=== PATIENT | male | born 1980 | race Caucasian/White ===

== ENCOUNTER 2019-11-16 10:43 | Emergency (ER) | payer OTHER, SELFPAY ==
--- NOTE | ~2019-11-16 | XR_ITS ---
EXAMINATION: XR finger 5th RT min 2V EXAM DATE: 11/16/2019 11:30 INDICATION: Initial encounter following injury, with pain of the right 5th finger. TECHNIQUE: Right 5th finger frontal, lateral and oblique projections obtained and reviewed. There is no prior study for comparison. FINDINGS: Acute open posttraumatic comminuted fracture of the right 5th tuft, with distraction of th e fracture fragments, deep overlying laceration and soft tissue swelling. No radiopaque foreign howard s identified. The middle and proximal phalanges are unremarkable. There may be an old healed 5th meta carpal fracture. IMPRESSION: Acute open right 5th tuft comminuted fractures. Reviewed, dictated and finalized at location B.
--- NOTE | 2019-11-16 10:49 | ED.GENADULT ---
HPI - General Adult General Chief complaint: Skin/Abscess/Foreign Body Stated complaint: rt hand pinkie laceration Time Seen by Provider: 11/16/19 10:48 Source: patient Mode of arrival: ambulatory Limitations: no limitations History of Present Illness HPI narrative: 38-year-old male patient presents to the [facility] with complaints of a laceration to the right pinky. Patient states that he got mad earlier today and slammed a door but states that his pinky was in the door. Patient unsure when his last tetanus shot was. Patient denies take anything for pain prior to arrival. Related Data Home Medications Medication Instructions Recorded Confirmed citalopram 20 mg PO DAILY 11/16/19 11/16/19 Allergies Allergy/AdvReac Type Severity Reaction Status Date / Time No Known Allergies Allergy Unknown Verified 11/16/19 10:50 Review of Systems Review of Systems: Narrative: CONSTITUTIONAL: Denies fever, chills, or sweats. EYES: Denies visual changes, redness, or discharge. ENT: Denies rhinorrhea, congestion, sore throat, or otalgia. CARDIOVASCULAR: Denies chest pain, palpitations, or edema. RESPIRATORY: Denies cough or dyspnea. GASTROINTESTINAL: Denies abdominal pain, nausea, vomiting, or diarrhea. GENITOURINARY: Denies dysuria or hematuria. SKIN: Denies rash or itching. MUSCULOSKELETAL: Denies back pain, joint pain, or myalgia. Positive right pinky wound/laceration NEUROLOGIC: Denies headache, numbness, or weakness. PSYCHIATRIC: Denies anxiety or depression. PMFSH Past Medical History Medical History (Updated 11/16/19 @ 12:16 by MIGUELINA Mitchell) Depression Fractures And Ulcer Family History Family History Father Family history of malignant neoplasm Social History Social History Smoking status: Never smoker Alcohol intake: never Comments At the time of my signature I agree with nursing past medical history, surgical, social, and family history. There is no relevant family history pertinent to the presenting complaint. Exam Narrative: Exam Narrative: GENERAL: Well-appearing, well-nourished, and in no acute distress. HEAD: Normocephalic, atraumatic. EYES: PERRLA and EOMI. ENT: Nares clear, no rhinorrhea or epistaxis. Mucous membranes moist. NECK: Supple. No lymphadenopathy CHEST: Clear to auscultation. No respiratory distress. HEART: Regular rate and rhythm. No murmur heard. Normal peripheral pulses. ABDOMEN: Soft, nontender, nondistended, normal active bowel sounds. EXTREMITIES: The distal tip of the right pinky appears to be amputated, it is lacerated on bilateral sides of the nail but it does not appear to have any nail damage. Normal cascade of fingers. Decreased flexion and extension of fingers of right pinky finger. FDS and FDP intact aganist restistance. No focal fullness, thobbing pain, swelling of fingertip. Pain and tenderness to the right distal pinky. Pulses and cap refill normal SKIN: Warm, dry, no rash. NEURO: No focal deficits. Alert and oriented x3. Course Reevaluation(s) Reevaluation #1: Called ER to have patient transferred to ER due to the fact that he has an open fracture along with an amputation of the pinky finger for further evaluation. Spoke with Dr. Del Castillo. he is recommended to call Dr. Rodriguez who is on-call for plastics to see if they might be able to see him in office especially since he has nothing to do so and would need to see plastics anyway. A phone call was placed to Dr. Rodriguez's office and a message was left. Awaiting on callback at this time. Date: 11/16/19 Time: 11:45 Reevaluation #2: Called Dr. Rodriguez's cell phone and left message to call back about patient. Awaiting on callback at this time. Date: 11/16/19 Time: 12:00 Reevaluation #3: Dr. Bergman did call back. Will send patient to Dr. Rodriguez's office for repair. Patient is aware of this pl
[2019-11-16 10:53] VITALS: BP 125/82; PULSE 57; RESP 20; TEMP 35.6; O2SAT 100
[2019-11-16] MEDS: ACETAMINOPHEN 500 MG TABLET 1000 MG PO (11:12)
[2019-11-16] MEDS: TETANUS,DIPHTHERIA,AC PERTUSSIS ADULT (0.5 ML) BOOSTRIX IM (11:16)
== END 2019-11-16 12:21 | disposition home or self-care (01) ==
PROVIDERS: Emergency Provider Nurse Practitioner Family
DX: S62.666B Nondisplaced fracture of distal phalanx of right little finger, initial encounter for open fracture (principal); W23.0XXA Caught, crushed, jammed, or pinched between moving objects, initial encounter; Z23 Encounter for immunization
CPT/HCPCS: 73140; 90471; 90715; 99213; A9270; G0463